=== PATIENT | female | born 1925 | race Caucasian/White ===

== ENCOUNTER 2017-02-26 19:57 | Inpatient (IN) | payer OTHER ==
[~2017-02-26] VITALS: Ht 162.6 cm; Wt 79.4 kg
[~2017-02-26 19:57] MED LIST: ATENOLOL 50 MG50 M1; BUTRANS1 EAC1 TD; COUMADIN 4 MG TA4 M1 PO; COUMADIN 5 MG TA5 M1; IMDUR 60 MG TAB60 M1 PO; LASIX 40 MG TAB40 M1 PO; LEVOXYL75 MCG PO; MACROBID 100 M100 M1 PO; ZOCOR40 MG
[2017-02-26 20:01] VITALS: BP 144/34
[2017-02-26] MEDS ORDERED: POTASSIUM20 PO (20:04)
[2017-02-26] MEDS ORDERED: ZOLOFT50 MG PO (20:04)
[2017-02-26] MEDS ORDERED: LOPRESSOR25 PO (20:05)
[2017-02-26 20:43] LABS: HEMATOCRIT 32.2 % (37.0-47.0); MCH 31.6 pg (26.0-34.0); MCHC 34.3 g/dL (28.0-37.0); MPV 8.1 fl. (7.2-11.1); NUCLEATED RBCS 0 /100WBC; PLATELET COUNT* 222 thou/uL (150-400); RDW-CV 15.9 % (10.5-14.5); WBC 7.9 thou/uL (4.0-11.0)
[2017-02-26 20:59] LABS: URINE BILIRUBIN NEGATIVE (Negative); URINE BLOOD TRACE (Negative); URINE CLARITY CLEAR; URINE COLOR YELLOW; URINE GLUCOSE-RANDOM NEGATIVE (Negative); URINE KETONES NEGATIVE (Negative); URINE LEUKOCYTES-REFLEX NEGATIVE (Negative); URINE PROTEIN NEGATIVE (Negative); URINE UROBILINOGEN 0.2 E.U./dl (0.2-1.0)
[2017-02-26 21:00] LABS: CALCIUM 8.8 mg/dL (8.5-10.1); POTASSIUM 4.2 mmol/L (3.5-5.1)
[2017-02-26 21:00] LABS: URINE NITRITE-REFLEX POSITIVE (Negative)
[2017-02-26 21:04] LABS: ALBUMIN 3.4 g/dL (3.4-5.0); TOTAL BILIRUBIN 0.4 mg/dL (<0.1-1.0); TOTAL PROTEIN 7.1 g/dL (6.4-8.2)
[2017-02-26 21:31] LABS: SQUAMOUS 0-3 Few /LPF (0-3)
[2017-02-26 21:32] LABS: CASTS None Seen /LPF (None Seen); URINE RBC None Seen /HPF (0-2); URINE WBC-REFLEX 0-5 Rare /HPF (0-5)
[2017-02-26 21:33] LABS: BACTERIA-REFLEX >30 Many /HPF (None Seen); CRYSTALS None Seen /LPF (None Seen)
[2017-02-26 21:54] LABS: ABSOLUTE EOSINOPHILS 0.1 thou/uL (0.0-0.7); ABSOLUTE LYMPHOCYTES 0.7 thou/uL (0.8-5.3); ABSOLUTE MONOCYTES 0.4 thou/uL (0.0-1.2); ABSOLUTE NEUTROPHILS 6.7 thou/uL (1.6-8.1)
[2017-02-26 21:55] LABS: ANISOCYTOSIS 1+
[2017-02-26 21:56] VITALS: BP 144/64
[2017-02-26 21:56] LABS: PLATELET ESTIMATE ADEQUATE
[2017-02-26 22:15] VITALS: BP 153/53
[2017-02-27] MEDS ORDERED: COUMADIN 2 MG TA2 M1 PO (01:21)
[2017-02-27] MEDS ORDERED: COUMADIN 2.5MG2.5 M1 PO (01:22)
[2017-02-27] MEDS ORDERED: QUESTRAN PACKET4 GM PO (01:24)
[2017-02-27 07:13] LABS: ABSOLUTE BASOPHILS 0.1 thou/uL (0.0-0.2); ABSOLUTE EOSINOPHILS 0.1 thou/uL (0.0-0.7); ABSOLUTE LYMPHOCYTES 0.6 thou/uL (0.8-5.3); ABSOLUTE MONOCYTES 0.4 thou/uL (0.0-1.2); ABSOLUTE NEUTROPHILS 4.6 thou/uL (1.6-8.1); EOSINOPHILS 1.4 %; HEMATOCRIT 31.8 % (37.0-47.0); HEMOGLOBIN 10.7 gm/dL (12.0-15.0); MCH 31.6 pg (26.0-34.0); MCHC 33.7 g/dL (28.0-37.0); MCV 93.6 fL (80.0-100.0); MONOCYTES 7.4 %; MPV 8.2 fl. (7.2-11.1); NUCLEATED RBCS 0 /100WBC; PLATELET COUNT* 188 thou/uL (150-400); POLYS 79.2 %; RDW-CV 16.1 % (10.5-14.5); WBC 5.8 thou/uL (4.0-11.0)
[2017-02-27 08:44] VITALS: BP 176/51
[2017-02-27 16:08] LABS: INR 2.5
[2017-02-27 16:35] VITALS: BP 150/66
[2017-02-27 20:00] VITALS: BP 152/59
[2017-02-28 04:00] VITALS: BP 137/43
[2017-02-28 04:25] LABS: INR 2.4; PROTIME 22.8 Seconds (9.20-11.50)
[2017-02-28 04:27] LABS: HEMATOCRIT 26.1 % (37.0-47.0); HEMOGLOBIN 9.3 gm/dL (12.0-15.0); MCH 32.3 pg (26.0-34.0); MCHC 35.8 g/dL (28.0-37.0); MCV 90.2 fL (80.0-100.0); MPV 8.1 fl. (7.2-11.1); RBC 2.89 mil/uL (4.20-5.00); RDW-CV 15.9 % (10.5-14.5); WBC 6.1 thou/uL (4.0-11.0)
[2017-02-28 04:49] LABS: ALBUMIN 2.7 g/dL (3.4-5.0); CALCIUM 8.4 mg/dL (8.5-10.1); CREATININE 0.9 mg/dL (0.6-1.3); MAGNESIUM 2.1 mg/dL (1.8-2.4); POTASSIUM 4.4 mmol/L (3.5-5.1); TOTAL BILIRUBIN 0.6 mg/dL (<0.1-1.0); TOTAL PROTEIN 5.2 g/dL (6.4-8.2)
[2017-02-28 08:30] VITALS: BP 126/56
[2017-02-28 16:00] VITALS: BP 132/64
[2017-02-28 20:00] VITALS: BP 150/67
--- NOTE | 2017-03-01 07:56 | CON ---
[address] [address] CONSULTATION Name: MORGAN VENEGAS Room: [address] IN [facility]#: [id number] Admission: 02/26/17 Attend Phys: Jeffrey Westbrook, Discharge: Date of : [birth year] Report #: [id number] THIS REPORT FOR: //name// CC: Yair Westbrook DATE OF SERVICE: 02/28/2017 INFECTIOUS DISEASE CONSULTATION ATTENDING PHYSICIAN: Jeffrey Westbrook MD REASON FOR EVALUATION: Right lower extremity skin and soft tissue infection, questionable tibial osteomyelitis. HISTORY OF PRESENT ILLNESS: Chart reviewed, patient examined. This is an 89-year-old woman with diffuse vasculopathy, has some degree of debility over recent months, which seems to be progressive. She has had several falls. She has had known fractures involving her left upper extremity. She was in a nursing facility, was found to have increasing inflammation noted. On the right lower extremity, there was a skin tear, there was a concern about cellulitis. She did have associated low-grade temperature elevation as well. She was evaluated including plain films which raised a question of some periosteal changes involving the proximal tibia on the right. Her daughter is present. She is unable to give too much of the details of the history. She seemingly has had a decreased p.o. intake and perhaps some weight loss. There is no significant mention of pulmonary or gastrointestinal-related complaints. She was empirically started on vancomycin. Leg culture in progress. Gram stain did show gram-positive cocci. Blood cultures sterile thus far. Urine culture has greater than 10-5th gram-negative rods. UA only showed 0-5 white cells. ALLERGIES: HYDROCODONE, PROPOXYPHENE, TRAMADOL. CURRENT MEDICATIONS: Include cholestyramine, ____, metoprolol, warfarin, vancomycin, did get a dose of ceftriaxone. PAST MEDICAL HISTORY: As noted above, diffuse vasculopathy; has previous aortocoronary bypass grafting; history of hypothyroidism; hypertension; hyperlipidemia; DVT with PE, on chronic Coumadin; lymphedema; left total knee replacement. SOCIAL HISTORY: Nonsmoker, no ethanol. FAMILY HISTORY: Noncontributory. REVIEW OF SYSTEMS: [place] [address] CONSULTATION Name: MORGAN VENEGAS Room: [address]#: [id number] Admission: 02/26/17 Attend Phys: Jeffrey Westbrook, Discharge: Date of : [birth year] Report #: [id number] PHYSICAL EXAMINATION: GENERAL: She has some degree of encephalopathy, it is not clear if she has some underlying early dementia, [id number] distress. VITAL SIGNS: Temperature 97.4, pulse 67, respirations 16, blood pressure 126/56. SKIN: Warm, dry, no rashes. HEENT: Unremarkable. NECK: Supple. LUNGS: Few scattered crackles. Adequate breath sounds. HEART: Regular. I do not appreciate a murmur. ABDOMEN: Soft, nontender, nondistended. EXTREMITIES: Immobilizing wrap, left upper extremity. Right lower extremity has 2 areas of superficial ulcerations, which suggest a deeper tunnel. GENITOURINARY AND RECTAL: Deferred. LABORATORY DATA: Blood cultures sterile thus far. Electrolytes: Sodium 142, potassium 4.4, chloride 112, bicarbonate is 20, anion gap of 10, BUN and creatinine 17 and 0.9. LFTs unremarkable. Albumin of 2.7, total protein 5.2. Estimated GFR 59. CBC: White count 6.1, H and H 9.3 and 26.1, platelets of 181. Culture of urine as described above. Sed rate of 32, CRP of 38.1. Venous Doppler of the lower extremity, no evidence of DVT on the right. Plain film shows periosteal elevation involving the medial distal tibial diaphysis and metaphysis. Chest x-ray: Cardiomegaly, no evidence of congestive heart failure, pneumonitis. Urinalysis 0-5 white cells. ASSESSMENT: Right lower extremity inflammatory eruption, clinical evidence would favor more of a superficial skin or soft tissue infection, we will see how she does clinically. We will continue wound care as prescribed and discussed with her daughter. She did have positive urine culture, we will redose the ceftriaxone pending those results as well and see if her encephalopathy does not improve with treatment and try to optimize her nutritional status. Continue wound care as prescribed. <ELECTRONICALLY SIGNED> By: Kevan Sparks MD 03/01/17 [id number] Sparks MD /nt
[2017-03-01 09:00] VITALS: BP 191/60
--- NOTE | 2017-03-01 15:13 | 2DMMODE ---
[place] [address] 2 D/M-MODE ECHOCARDIOGRAM Name: MORGAN VENEGAS Room: [address] IN [facility]#: [id number] Admission: 02/26/17 Attend Phys: Jeffrey Page Discharge: Date of : [birth year] Date of Service: 03/01/17 1512 Report #: [id number] THIS REPORT FOR: //name// APPROVED REPORT Study performed: 03/01/2017 11:48:25 EXAM: Comprehensive 2D, Doppler, and color-flow Echocardiogram Patient Location: In-Patient Room #: [facility] Status: routine BSA: 1.83 HR: 61 bpm BP: 191/60 mmHg Rhythm: NSR Other Information Study Quality: Good Indications Dyspnea 2D Dimensions LVEF(%): 41.39 (>50%) IVSd: 13.82 (7-11mm) LVOT Diam: 19.35 (18-24mm) LVDd: 50.15 mm PWd: 11.27 (7-11mm) Ascending Ao: 34.72 (22-36mm) LVDs: 39.95 (25-40mm) Aortic Root: 31.29 mm Page's LVEF: 41.39 % Volumes Left Atrial Volume (Systole) LA ESV Index: 60.70 mL/m2 Aortic Valve AoV Peak Gary.: 1.74 m/s AO Peak Gr.: 12.18 mmHg LVOT Max P.13 mmHg AO Mean Gr.: 6.66 mmHg LVOT Mean P.07 mmHg LVOT Max V: 0.73 m/s AO V2 VTI: 39.78 cm LVOT Mean V: 0.48 m/s MAX (VTI): 1.17 cm2 LVOT V1 VTI: 15.89 cm Mitral Valve E/A Ratio: 3.14 [place] [address] 2 D/M-MODE ECHOCARDIOGRAM Name: KEVINMORGAN MANZO Room: [address] IN [facility]#: [id number] Admission: 02/26/17 Attend Phys: Jeffrey Page Discharge: Date of : [birth year] Date of Service: 03/01/17 1512 Report #: [id number] MV Decel. Time: 129.03 ms MV E Max Gary.: 1.35 m/s MV PHT: 37.42 ms MVA (PHT): 5.88 cm2 TDI E/Lateral E': 15.00 E/Medial E': 19.29 Medial E' Gary.: 0.07 m/s Lateral E' Gary.: 0.09 m/s Pulmonary Valve PV Peak Gary.: 1.13 m/s PV Peak Gr.: 5.13 mmHg Tricuspid Valve TR Peak Gr.: 65.60 mmHg RVSP: 70.00 mmHg Left Ventricle The left ventricle is normal size. There is normal LV segmental wall motion. Mild concentric left ventricular hypertrophy. Left ventricular systolic function is normal. LVEF is 50-55%. Grade IV - fixed restrictive diastolic dysfunction. Right Ventricle Right ventricle is moderately dilated. The right ventricular systolic function is normal. Atria Left atrium is severely dilated. Right atrium is severely dilated. Aortic Valve Moderate aortic valve sclerosis. Mild aortic regurgitation. Moderate aortic stenosis. Mitral Valve The mitral valve is normal in structure. Mild mitral regurgitation. No evidence of mitral valve stenosis. Tricuspid Valve The tricuspid valve is normal in structure. Moderate tricuspid regurgitation. The RVSP is 80 mmHg. Pulmonic Valve The pulmonary valve is normal in structure. Mild [place] [address] 2 D/M-MODE ECHOCARDIOGRAM Name: MORGAN VENEGAS Diana Room: [address] IN [facility]#: [id number] Admission: 02/26/17 Attend Phys: Jeffrey Page Discharge: Date of : [birth year] Date of Service: 03/01/17 1512 Report #: [id number] Great Vessels The aortic root is normal in size. IVC is normal in size and collapses with >50% inspiration Pericardium There is no pericardial effusion. <Conclusion> The left ventricle is normal size. Mild concentric left ventricular hypertrophy. Left ventricular systolic function is normal. LVEF is 50-55%. Grade IV - fixed restrictive diastolic dysfunction. Right ventricle is moderately dilated. Left atrium is severely dilated. Right atrium is severely dilated. Moderate aortic valve sclerosis. Mild aortic regurgitation. Moderate aortic stenosis. Moderate tricuspid regurgitation. The RVSP is 80 mmHg. Mild pulmonic regurgitation. <ELECTRONICALLY SIGNED> By: Marcelo Rodriguez MD, FACC 03/01/171511 11 11 Marcelo Rodriguez MD, FACC /INF
[2017-03-01 16:07] VITALS: BP 146/58
[2017-03-01 20:00] VITALS: BP 147/55
[2017-03-02] VITALS: BP 148/63
[2017-03-02 08:22] VITALS: BP 153/68
[2017-03-02] MEDS ORDERED: VENELEX OINTMEN60 GM TOP (10:49)
[2017-03-02] MEDS ORDERED: AMOXIL 875 MG875 M2 PO (11:00)
[2017-03-02 11:05] VITALS: BP 153/68
[2017-03-02 15:26] VITALS: BP 148/59
[2017-03-02 20:00] VITALS: BP 105/54
[2017-03-03 08:01] VITALS: BP 169/89
[2017-03-03 09:02] VITALS: BP 169/89
[2017-03-03] MEDS ORDERED: MINOCIN100 MG PO (11:38)
== END 2017-03-03 13:37 | DRG 542 ==
LOC: M.ERS 19:57 → M.ORTHSURG 20:43 → M.TBA-ER 20:43 → M.ORTHSURG 22:02
PROVIDERS: Physician Assistant; ADMIT Family Medicine
PROC: B24BZZ4 Ultrasonography of Heart with Aorta, Transesophageal (ICD-10-PCS; principal; 2017-03-01)
DX: M80.022A Age-related osteoporosis with current pathological fracture, left humerus, initial encounter for fracture (principal); L89.153 Pressure ulcer of sacral region, stage 3; L03.115 Cellulitis of right lower limb; N39.0 Urinary tract infection, site not specified; M80.032A Age-related osteoporosis with current pathological fracture, left forearm, initial encounter for fracture; I10 Essential (primary) hypertension; E03.9 Hypothyroidism, unspecified; E78.5 Hyperlipidemia, unspecified; I25.10 Atherosclerotic heart disease of native coronary artery without angina pectoris; W18.39XA Other fall on same level, initial encounter; Z96.652 Presence of left artificial knee joint; Z95.1 Presence of aortocoronary bypass graft; Z79.01 Long term (current) use of anticoagulants; Z79.899 Other long term (current) drug therapy; Z86.718 Personal history of other venous thrombosis and embolism; Z86.711 Personal history of pulmonary embolism; Z88.8 Allergy status to other drugs, medicaments and biological substances; Y93.89 Activity, other specified; Y92.89 Other specified places as the place of occurrence of the external cause; Y99.8 Other external cause status

== ENCOUNTER → 2017-03-11 | Outpatient (CLI) | payer OTHER ==
[~2017-03-11] MED LIST changes: +AMOXIL 875 MG875 M2 PO; +COUMADIN 2 MG TA2 M1 PO; +COUMADIN 2.5MG2.5 M1 PO; +LOPRESSOR25 PO; +MINOCIN100 MG PO; +POTASSIUM20 PO; +QUESTRAN PACKET4 GM PO; +VENELEX OINTMEN60 GM TOP; +ZOLOFT50 MG PO
--- NOTE | 2017-03-14 07:54 | CON ---
[address] [address] CONSULTATION Name: RUBIMORGAN Ortiz Room: [facility] Char#: [id number] Admission: 03/11/17 Attend Phys: Dalton Young, Discharge: Date of : [birth year] Report #: [id number] THIS REPORT FOR: //name// CC: Yair Young DATE OF SERVICE: 03/11/2017 Seen in the wound care center. ATTENDING PHYSICIAN: Dr. Dalton Young. HISTORY OF PRESENT ILLNESS: The patient is seen in followup hospitalization, had a traumatic injury to her right mid pretibial site. Generally it has been showing some healing. She denies significant amount of pain locally. She has not had systemic illness. She is currently on some topical therapy as well as Augmentin. After the culture came back post discharge, she was noted to have pseudomonas. Despite the fact that she has not had systemic anti-pseudomonal coverage, the wound has progressively healed. ASSESSMENT AND PLAN: Right pretibial ulcer complicated by inflammation. We will continue topical therapy as prescribed by Dr. Young, discontinue the Augmentin and monitor. She was instructed to call. Her daughter was present as well to help monitor, do a daily dressing change. <ELECTRONICALLY SIGNED> By: Kevan Sparks MD 03/14/17 0754 [id number] Sparks MD /yennifer
== END ==
LOC: M.WC 01:41
DX: L89.153 Pressure ulcer of sacral region, stage 3 (principal); I87.331 Chronic venous hypertension (idiopathic) with ulcer and inflammation of right lower extremity; L97.811 Non-pressure chronic ulcer of other part of right lower leg limited to breakdown of skin; I25.10 Atherosclerotic heart disease of native coronary artery without angina pectoris; I48.2 Chronic atrial fibrillation; I10 Essential (primary) hypertension; E03.9 Hypothyroidism, unspecified; E78.5 Hyperlipidemia, unspecified; I89.0 Lymphedema, not elsewhere classified; F33.1 Major depressive disorder, recurrent, moderate; F03.90 Unspecified dementia, unspecified severity, without behavioral disturbance, psychotic disturbance, mood disturbance, and anxiety; Z68.30 Body mass index [BMI] 30.0-30.9, adult; Z95.1 Presence of aortocoronary bypass graft; Z98.62 Peripheral vascular angioplasty status; Z87.891 Personal history of nicotine dependence

== ENCOUNTER → 2017-03-17 | Outpatient (CLI) | payer OTHER | LOC: M.WC 01:49 | DX: I87.331 Chronic venous hypertension (idiopathic) with ulcer and inflammation of right lower extremity (principal); L97.811 Non-pressure chronic ulcer of other part of right lower leg limited to breakdown of skin; L89.152 Pressure ulcer of sacral region, stage 2; I25.10 Atherosclerotic heart disease of native coronary artery without angina pectoris; I48.2 Chronic atrial fibrillation; K59.01 Slow transit constipation; F33.1 Major depressive disorder, recurrent, moderate; F03.90 Unspecified dementia, unspecified severity, without behavioral disturbance, psychotic disturbance, mood disturbance, and anxiety; E03.9 Hypothyroidism, unspecified; E78.5 Hyperlipidemia, unspecified; I89.0 Lymphedema, not elsewhere classified; Z68.30 Body mass index [BMI] 30.0-30.9, adult; Z87.891 Personal history of nicotine dependence; Z95.1 Presence of aortocoronary bypass graft ==

== ENCOUNTER → 2017-03-24 | Outpatient (CLI) | payer OTHER | LOC: M.WC 03:35 | DX: I87.331 Chronic venous hypertension (idiopathic) with ulcer and inflammation of right lower extremity (principal); L97.811 Non-pressure chronic ulcer of other part of right lower leg limited to breakdown of skin; L89.153 Pressure ulcer of sacral region, stage 3; I25.10 Atherosclerotic heart disease of native coronary artery without angina pectoris; I48.2 Chronic atrial fibrillation; K59.04 Chronic idiopathic constipation; F33.1 Major depressive disorder, recurrent, moderate; F03.90 Unspecified dementia, unspecified severity, without behavioral disturbance, psychotic disturbance, mood disturbance, and anxiety; E03.9 Hypothyroidism, unspecified; E78.5 Hyperlipidemia, unspecified; I89.0 Lymphedema, not elsewhere classified; Z95.1 Presence of aortocoronary bypass graft ==